=== PATIENT | female | born 1970 | race Caucasian/White ===

== ENCOUNTER 2017-12-28 13:50 | Outpatient (CLI) | payer BC | END 2017-12-28 13:51 | disposition home or self-care (01) | LOC: BICMAMMO 13:50 | PROVIDERS: ATTEND Obstetrics & Gynecology | DX: Z12.31 Encounter for screening mammogram for malignant neoplasm of breast (principal); R92.1 Mammographic calcification found on diagnostic imaging of breast; Z80.3 Family history of malignant neoplasm of breast | CPT/HCPCS: 77063; 77067 ==